=== PATIENT | female | born 1985 | race Caucasian/White ===

== ENCOUNTER 2017-12-08 19:09 | Observation (INO) | payer OTHER ==
[~2017-12-08] VITALS: Ht 170 cm; Wt 90.9 kg
[2017-12-08 19:40] VITALS: BP 120/77
[2017-12-08] MEDS ORDERED: PREN1TAB80 PO (20:01)
[2017-12-08] MEDS ORDERED: [UNRECOGNIZED DRUG - CODE] PO (20:05)
== END 2017-12-08 21:30 | disposition home or self-care (01) ==
LOC: 4S 19:09
PROVIDERS: ADMIT Obstetrics & Gynecology; ATTEND Obstetrics & Gynecology
DX: O42.92 Full-term premature rupture of membranes, unspecified as to length of time between rupture and onset of labor (principal); Z3A.38 38 weeks gestation of pregnancy
CPT/HCPCS: 36415; 59025; 89060; G0378

== ENCOUNTER 2017-12-15 09:47 | Observation (INO) | payer OTHER ==
[~2017-12-15] VITALS: Ht 170.2 cm; Wt 91.6 kg
[~2017-12-15 09:47] MED LIST: PREN1TAB80 PO; [UNRECOGNIZED DRUG - CODE] PO
[2017-12-15 10:25] VITALS: BP 102/65
== END 2017-12-15 11:36 | disposition home or self-care (01) ==
LOC: 4S 09:47
PROVIDERS: ADMIT Obstetrics & Gynecology; ATTEND Obstetrics & Gynecology
DX: Z34.03 Encounter for supervision of normal first pregnancy, third trimester (principal); Z3A.39 39 weeks gestation of pregnancy
CPT/HCPCS: 59025; G0378

== ENCOUNTER 2017-12-17 21:40 | Inpatient (IN) | payer OTHER ==
[~2017-12-17] VITALS: Ht 170.2 cm; Wt 90.7 kg
[2017-12-17 22:29] VITALS: BP 114/75
[2017-12-17] MEDS ORDERED: OXYTOCIN 20 UNITS/LACT RINGERS 1,000 ML IV ONE (23:44)
[2017-12-17] MEDS ORDERED: CITRIC ACID/SODIUM CITRATE 30 ML SOLUTION UDCUP PO PRN (23:45)
[2017-12-17] MEDS ORDERED: LIDOCAINE HCL/PF 1% 30 ML VIAL INJ PRN (23:45)
[2017-12-17] MEDS ORDERED: TERBUTALINE SULFATE 1 MG/ML VIAL SQ PRN (23:45)
[2017-12-17] MEDS ORDERED: METOCLOPRAMIDE HCL 5 MG/ML 2 ML VIAL IVP PRN (23:45)
[2017-12-17] MEDS ORDERED: RINGERS SOLUTION,LACTATED 1,000 ML IV PRN (23:58)
[2017-12-18 00:45] LABS: BASOPHILS % (AUTO) 0.2 % (0.0-2.0); EOSINOPHILS % (AUTO) 0.5 % (1.0-6.0); HEMATOCRIT 34.4 % (36-46); HEMOGLOBIN 11.7 g/dL (12.0-16.0); LYMPHOCYTES # (AUTO) 1.6 K/uL (1.0-4.8); LYMPHOCYTES % (AUTO) 14.1 % (22.0-44.0); MEAN CORPUSCULAR HEMOGLOBIN 30.1 pg (26.0-34.0); MEAN CORPUSCULAR VOLUME 89 fL (80-100); MONOCYTES # (AUTO) 0.9 K/uL (0.1-1.0); MONOCYTES % (AUTO) 7.8 % (2.0-9.0); NEUTROPHILS # (AUTO) 8.6 K/uL (1.8-7.7); NEUTROPHILS % (AUTO) 77.4 % (40.0-70.0); PLATELET COUNT (AUTO)-OB 260 K/uL (150-450); RED BLOOD CELL COUNT(AUTO) 3.88 MIL/uL (4.00-5.20)
[2017-12-18] MEDS: RINGERS SOLUTION,LACTATED 1,000 ML IV SCH ×3 (00:53→10:24)
[2017-12-18] MEDS ORDERED: OXYTOCIN 30 UNITS/LACT RINGERS 500 ML IV PRN (01:38)
[2017-12-18] MEDS ORDERED: LIDOCAINE HCL/PF 2% 5 ML VIAL ONE (02:14)
[2017-12-18] MEDS ORDERED: ROPIVACAINE HCL 0.2% 100 ML ED ONE (02:14)
[2017-12-18] MEDS ORDERED: BUPIVACAINE HCL/PF 0.25% 10 ML VIAL ONE (02:40)
[2017-12-18] MEDS ORDERED: ROPIVACAINE HCL 0.2% 100 ML ED PRN (03:56)
[2017-12-18] MEDS ORDERED: PROMETHAZINE HCL 12.5 MG in SODIUM CHLORIDE 0.9% 50 ML IV PRN (04:00)
[2017-12-18] MEDS ORDERED: NALBUPHINE HCL 10 MG/ML VIAL IVP PRN (04:00)
[2017-12-18] MEDS ORDERED: ONDANSETRON HCL 4 MG/2 ML VIAL IVP PRN (04:00)
[2017-12-18] MEDS ORDERED: DiphenhydrAMINE HCL 50 MG/ML VIAL IVP PRN (04:00)
[2017-12-18] MEDS ORDERED: BENZOCAINE 20%/MENTHOL 56 GM SPRAY CANISTER TP PRN (11:30)
[2017-12-18] MEDS ORDERED: LANOLIN 7 GM OINTMENT TP PRN (11:30)
[2017-12-18] MEDS ORDERED: GLYCERIN/WITCH HAZEL LEAF 40 PADS JAR TP PRN (11:30)
[2017-12-18] MEDS ORDERED: RINGERS SOLUTION,LACTATED 1,000 ML IV ONE (11:30)
[2017-12-18] MEDS ORDERED: MEASLES/MUMPS/RUBELLA VACCINE, LIVE 0.5 ML/VIAL SQ ONE (11:30)
[2017-12-18] MEDS ORDERED: OxyCODONE HCL/ACETAMINOPHEN 5-325 MG TABLET PO PRN ×2 (11:30)
[2017-12-18] MEDS: IBUPROFEN 600 MG TABLET PO PRN (12:16)
[2017-12-18] MEDS ORDERED: MAGNESIUM HYDROXIDE SUSPENSION 30 ML UDCUP PO SCH (21:00)
[2017-12-19] MEDS: IBUPROFEN 600 MG TABLET PO PRN (02:04)
[2017-12-19] MEDS ORDERED: IBUP-2070 PO (09:11)
[2017-12-19] MEDS ORDERED: DSS100 PO (09:11)
[2017-12-19] MEDS ORDERED: FERR-89 PO (09:11)
== END 2017-12-19 13:35 | disposition home or self-care (01) | DRG 775 ==
LOC: 4S 21:40 → OBSVTOIN 21:40
PROVIDERS: ADMIT Obstetrics & Gynecology; ATTEND Obstetrics & Gynecology
PROC: 10E0XZZ Delivery of Products of Conception, External Approach (ICD-10-PCS; principal; 2017-12-18)
PROC: 10907ZC Drainage of Amniotic Fluid, Therapeutic from Products of Conception, Via Natural or Artificial Opening (ICD-10-PCS; 2017-12-18)
PROC: 0UQMXZZ Repair Vulva, External Approach (ICD-10-PCS; 2017-12-18)
PROC: 3E0R3BZ Introduction of Anesthetic Agent into Spinal Canal, Percutaneous Approach (ICD-10-PCS; 2017-12-18)
PROC: 00HU33Z Insertion of Infusion Device into Spinal Canal, Percutaneous Approach (ICD-10-PCS; 2017-12-18)
PROC: 3E0234Z Introduction of Serum, Toxoid and Vaccine into Muscle, Percutaneous Approach (ICD-10-PCS; 2017-12-18)
DX: O77.0 Labor and delivery complicated by meconium in amniotic fluid (principal); O71.82 Other specified trauma to perineum and vulva; Z3A.40 40 weeks gestation of pregnancy; Z37.0 Single live birth; Z23 Encounter for immunization
CPT/HCPCS: 86850; 86900; 86901; J2590; J2795; J3490; J7120